=== PATIENT | male | born 1965 | race Caucasian/White ===

== ENCOUNTER 2019-11-17 07:10 | Day surgery (SDC) | payer MEDICARE, MEDICAID ==
[2019-11-17] VITALS (11 sets, daily range): BP systolic 137–167; BP diastolic 83–117
[~2019-11-17] VITALS: Ht 175.3 cm; Wt 91.8 kg
[~2019-11-17 07:10] MED LIST: ACET-2119 PO; ASPI-1053 PO; CARB15DR91 EACH EAR; CLON-527 PO; CLON-529 PO; FLUO20CA39 PO; LORA-512 PO; OLAN2.5T3 PO; OLAN7.5T3 PO; TAB A VITE PO; TERA1CAP4 PO; famotidine 10mg tablet PO ONE; ringers solution, lacted 1,000 ML IV SCH
[2019-11-17] MEDS ORDERED: LIDOcaine 2% 10ml TOPICAL JELLY (Urojet) ONE (07:11)
[2019-11-17] MEDS ORDERED: oxymetazoline 15 ML nasal spray NS ONE (07:11)
[2019-11-17] MEDS ORDERED: ringers solution, lacted 1,000 ML IV SCH (07:27)
[2019-11-17] MEDS ORDERED: morphine 4 MG/ML inj SYRINge IV PRN ×2 (07:30)
[2019-11-17] MEDS ORDERED: hydrALAZINE 20mg/ml inj. IV PRN (07:30)
[2019-11-17] MEDS ORDERED: fentaNYL/PF 50MCG/1 ML 2ML syringe IV PRN ×2 (07:30)
[2019-11-17] MEDS ORDERED: ondansetron/PF 4mg/2ml inj IV PRN (07:30)
[2019-11-17 08:30] LABS: ISTAT CREATININE 1.2 mg/dL (0.8-1.3); ISTAT HGB 13.9 g/dl (14.0-18.0); ISTAT IONIZED CALCIUM 1.23 mmol/L (1.03-1.32); ISTAT K 4.1 mmol/L (3.5-5.1)
[2019-11-17] MEDS ORDERED: glycopyrrolate 0.2mg/ml inj ONE (09:07)
[2019-11-17] MEDS ORDERED: rocuronium 10mg/ml inj IV ONE (09:32)
[2019-11-17] MEDS ORDERED: propofol inj 20 ML IV ONE (09:32)
[2019-11-17] MEDS ORDERED: LIDOcaine 2% (20mg/ml) 5ml vial ONE (09:32)
[2019-11-17] MEDS ORDERED: midazolam 2 mg/2 ml injection ONE (09:33)
[2019-11-17] MEDS ORDERED: fentaNYL/PF 50MCG/1 ML 2ML syringe ONE (09:33)
[2019-11-17] MEDS ORDERED: neostigmine methylsulfate 1 MG/ML 10ml vial ONE (09:35)
[2019-11-17] MEDS ORDERED: sevoflurane 250ml liquid IH ONE (09:35)
[2019-11-17] MEDS ORDERED: dexamethasone sod phosphate 10mg/ml inj ONE (09:35)
[2019-11-17] MEDS ORDERED: ondansetron/PF 4mg/2ml inj ONE (10:07)
[2019-11-17] MEDS ORDERED: naloxone 0.4 mg/ml inj ONE ×2 (10:49)
--- NOTE | 2019-11-17 10:55 | NUR ---
Received from OR via [facility], accompanied by Anesthesiologist DR BARRIOS and report given by Anesthesiologist. PT DROWSY, NO S/S/ OF DISTRESS/DISCOMFORT, PTS CAREGIVERS AT BEDSIDE. Addendum: 11/17/19 at 1106 by Mireille Contreras RN Amended: Links added.
[2019-11-17] MEDS: labetalol 20mg/4ml (5mg/ml) syringe IV PRN ×3 (11:09→11:27)
--- NOTE | 2019-11-17 12:25 | NUR ---
PT IS W/POOR COMMUNICATION SKILLS BUT DEMONSTRATES NO DISCOMFORT OR DISTRESS, VSS, PT D'CD TO HOME VIA W/C TO PRIVATE VEHICLE W/O INCIDENT W/HIS CAREGIVERS. Addendum: 11/17/19 at 1237 by Mireille Contreras RN Amended: Links added.
== END 2019-11-17 12:25 | disposition home or self-care (01) ==
LOC: PAS 07:10
PROVIDERS: ATTEND Student in an Organized Health Care Education/Training Program
DX: K02.9 Dental caries, unspecified (principal); K05.6 Periodontal disease, unspecified; N40.0 Benign prostatic hyperplasia without lower urinary tract symptoms; F39 Unspecified mood [affective] disorder; E66.9 Obesity, unspecified; Z68.29 Body mass index [BMI] 29.0-29.9, adult; Z88.8 Allergy status to other drugs, medicaments and biological substances; Z79.899 Other long term (current) drug therapy
CPT/HCPCS: 41899; 80047; 93005; J0360; J1100; J2001; J2250; J2310; J2405; J2704; J2710; J3010; A4618; A7000; J3490; J7120